=== PATIENT | male | born 1990 | race Caucasian/White ===

== ENCOUNTER 2016-09-15 13:41 | Emergency (ER) | payer BC, MEDICAID, OTHER ==
[2016-09-15 13:46] VITALS: BP 117/74
[2016-09-15] MEDS ORDERED: oxyCODONE/Acetamin 5/325 MG* TAB PO ONE ×2 (14:05)
[2016-09-15] MEDS ORDERED: ceFAZolin 1 GM in Dextrose (*) 1 GM/50 ML BAG IVPB ONE (15:04)
[2016-09-15] MEDS ORDERED: Tetan/Diph/Pertus SYR(Tdap)* 0.5 ML SYR(BOOSTRIX) use SYR IM ONE (15:04)
--- NOTE | 2016-09-15 15:09 | RAD ---
Indication: Right thumb injury. 2 views of the right thumb demonstrates a fracture through the distal tuft of the distal phalanx of the thumb consistent with partial amputation. IMPRESSION: Fracture through the distal tuft likely due to partial amputation of the right distal thumb.
--- NOTE | 2016-09-15 16:22 | ED ---
Laceration/Wound HPI - HPI Summary HPI Summary: 26m presents with right thumb laceration today. He was using a table saw when the board he was holding got sucked into the saw. He has full ROM of his finger. He states that he does not feel any numbness or tingling, he only feels pain. His last tetanus was 6 years ago. He is left handed. - History of Current Complaint Stated Complaint: RT HAND THUMB LAC Time Seen by Provider: 09/15/16 13:51 Pain Intensity: 6 - Allergy/Home Medications Allergies/Adverse Reactions: Allergies Allergy/AdvReac Type Severity Reaction Status Date / Time No Known Allergies Allergy Verified 09/15/16 16:33 PMH/Surg Hx/FS Hx/Imm Hx Endocrine/Hematology History: Denies: Hx Anticoagulant Therapy Cardiovascular History: Denies: Hx Hypertension Infectious Disease History: No Infectious Disease History: Denies: Traveled Outside the [place] in Last 30 Days - Family History Known Family History: Negative: Cardiac Disease - Social History Alcohol Use: Occasionally Substance Use Type: Reports: None Smoking Status (MU): Unknown if Ever Smoked Review of Systems Negative: Fever Negative: Chest Pain Negative: Shortness Of Breath Positive: Other - right thumb laceration All Other Systems Reviewed And Are Negative: Yes Physical Exam Triage Information Reviewed: Yes Vital Signs On Initial Exam: Initial Vitals Temp Pulse Resp BP Pulse Ox 97.3 F 72 20 117/74 100 09/15/16 13:43 09/15/16 13:43 09/15/16 13:43 09/15/16 13:43 09/15/16 13:43 Vital Signs Reviewed: Yes Appearance: Positive: Well-Appearing Skin: Positive: Warm, Dry, Other - large laceration of right thumb with skin avulsed 6 cm long and irregular by 2 cm wide Head/Face: Positive: Normal Head/Face Inspection Eyes: Positive: Normal, Conjunctiva Clear Respiratory/Lung Sounds: Positive: Clear to Auscultation, Breath Sounds Present Cardiovascular: Positive: Normal, RRR Musculoskeletal: Positive: Other - nail attached with good capillary refill, sensation grossly intact, full ROM of thumb Procedures - Laceration/Wound Repair 1 Location: Other - right thumb Description: Linear Anesthesia: Digital, 1.0% Length, Depth and Shape: 6cm by 2cm irregular with multiple intersecting laceration, skin avulsion Betadine Prep?: Yes Irrigated w/ Saline (ccs): 1,000 Laceration/Wound Explored: clean Closure: Single Layer Debridement: moderate Suture Type: Prolene - 4-0 Number of Sutures: 10 Layer Closure?: No Sterile Dressing Applied?: No Diagnostics - Vital Signs Vital Signs Temp Pulse Resp BP Pulse Ox 09/15/16 13:43 97.3 F 72 20 117/74 100 - Laboratory Lab Statement: Any lab studies that have been ordered have been reviewed, and results considered in the medical decision making process. Laceration Repair Course/Dx - Course Course Of Treatment: 26M presents with right thumb laceration from table saw. is left handed, full ROM of finger, has tuff fracture so treated with ancef and tetanus shot, tried to reapproximate edges as well as could with moderate debridement but area had large avulsion and was unable to suture area, had dr tuttle look at wound and areas are can not be sutured, placed surgicel on area and applied pressure dressing and splint and told to follow up with ortho for evaulation of tendons of hands, placed on antibiotics, patient understands and agrees with plan - Differential Dx Differental Diagnoses: Avulsion, Fracture, Laceration, Tendon Laceration - Clinical Impression Provider Diagnoses: Laceration of right thumb, Open fracture of tuft of distal phalanx of finger Discharge - Discharge Plan Condition: Good Disposition: HOME Prescriptions: Cephalexin CAP* [Keflex CAP*] 500 mg PO BID #20 cap Ibuprofen TAB* [Motrin TAB* 800 MG] 800 mg PO Q6H #30 tab Patient Education Materials: Care For Your Stitches (ED) Referrals: Josh Kumar MD [Medical Doctor] - No Primary Care Phys,NOPCP [Primary Care Provider] - Additional Instructions: Take antibiotic twice a day for 10 days starting tomorrow Take ibuprofen every 6 hours for pain as needed Change dressing tomorrow leaving absorbable hemostat on wound and rewrap, Keep brace on area until follow up with ortho Follow up with ortho Return to ED if 10-14 days to have sutures removed Return to ED if develop signs of infection such as fever, spreading redness, or pus.
== END 2016-09-15 17:04 | disposition home or self-care (01) ==
LOC: ED 13:41
DX: S62.501B Fracture of unspecified phalanx of right thumb, initial encounter for open fracture (principal); S61.011A Laceration without foreign body of right thumb without damage to nail, initial encounter; W45.8XXA Other foreign body or object entering through skin, initial encounter; Y93.9 Activity, unspecified; Y92.9 Unspecified place or not applicable
CPT/HCPCS: 90471; 90715; 99282; A9270-GY; J0690

== ENCOUNTER → 2017-04-11 10:40 | Emergency (ER) | payer MEDICAID, OTHER ==
[~2017-04-11 10:40] MED LIST: Ibuprofen TAB* 600 MG PO ONE
[2017-04-11 10:50] VITALS: BP 125/83
[2017-04-11 12:02] LABS: Hematocrit 46 % (42-52); Hemoglobin 15.9 g/dl (14.0-18.0); Mean Corpuscular HGB Conc 35 g/dl (31-36); Mean Corpuscular Hemoglobin 31 pg (27-31); Mean Corpuscular Volume 89 fL (80-94); Mean Platelet Volume 11 um3 (7.4-10.4); Red Blood Count 5.15 10^6/ul (4.0-5.4); Red Cell Distribution Width 13 % (10.5-15); White Blood Count 4.6 10^3/ul (3.5-10.8)
[2017-04-11 12:04] LABS: Comments Flag Yes
[2017-04-11 12:05] LABS: Add Diff/Slide Review? Slide Review Added
[2017-04-11 12:17] LABS: Albumin 4.4 g/dL (3.2-5.2); Calcium 9.3 mg/dL (8.6-10.3); EGFR African American 150.2 (>60); EGFR Non-African American 116.8 (>60); Globulin 2.4 g/dL (2-4); Total Bilirubin 0.9 mg/dL (0.2-1.0); Total Protein 6.8 g/dL (6.4-8.9)
--- NOTE | 2017-04-11 12:34 | ED ---
Lower Extremity - HPI Summary HPI Summary: 27 male presents to ED with complaints of right knee pain, and concern for infection. States it began 4-5 days ago and he was seen at for the same complaint. Started on augmentin, has taken 3.5 days doses and states has not had improvement. States he popped a "pimple" with a needle on skin of right knee cap 5 days ago and since has been having "burning, sharp, shooting" pain and swelling. States the "pimple" looks much better and he has just been covering with band-aid. No other complaints other than having some shooting pain in right lower leg intermittently. Admits to some swelling and that it feels warm. Has not taken any other medications. Admits to kneeling on his knees a lot at work without wearing his knee pads. No other PMHx. Denies fever and current erythema. Denies numbness/tingling. Able to bear weight and walk. - History of Current Complaint Chief Complaint: EDExtremityLower Stated Complaint: RT KNEE POSS INFECTION/BURNING PAIN Time Seen by Provider: 04/11/17 10:55 Hx Obtained From: Patient Mechanism Of Injury: Unknown, Other - popped small abscess over right knee cap Onset of Pain: Days Onset/Duration: Still Present Severity Initially: Mild Severity Currently: Moderate Pain Intensity: 5 Pain Scale Used: 0-10 Numeric Timing: Intermittent Location: Is Discrete @ - right knee Character Of Pain: Sharp, Aching, Burning Associated Signs And Symptoms: Positive: Swelling, Redness - "resolved", Knee Pain Aggravating Factor(s): Standing, Ambulation, Weight Bearing Alleviating Factor(s): Rest Able to Bear Weight: Yes - no issue with walking - Allergies/Home Medications Allergies/Adverse Reactions: Allergies Allergy/AdvReac Type Severity Reaction Status Date / Time No Known Allergies Allergy Verified 04/11/17 10:50 PMH/Surg Hx/FS Hx/Imm Hx Endocrine/Hematology History: Denies: Hx Anticoagulant Therapy Cardiovascular History: Denies: Hx Hypertension Musculoskeletal History: Denies: Hx Arthritis - Surgical History Surgery Procedure, Year, and Place: no - Immunization History Immunizations Up to Date: Yes Infectious Disease History: No Infectious Disease History: Denies: Traveled Outside the [place] in Last 30 Days - Family History Known Family History: Negative: Cardiac Disease - Social History Alcohol Use: Occasionally Substance Use Type: Reports: None Smoking Status (MU): Unknown if Ever Smoked Review of Systems Constitutional: Negative Cardiovascular: Negative Respiratory: Negative Gastrointestinal: Negative Positive: Arthralgia, Myalgia - right knee, Edema - right knee Positive: Rash - right knee- resolved Neurological: Negative All Other Systems Reviewed And Are Negative: Yes Physical Exam Triage Information Reviewed: Yes Vital Signs On Initial Exam: Initial Vitals Temp Pulse Resp BP Pulse Ox 97.8 F 85 15 125/83 98 04/11/17 10:47 04/11/17 10:47 04/11/17 10:47 04/11/17 10:47 04/11/17 10:47 Vital Signs Reviewed: Yes Appearance: Positive: Well-Appearing, No Pain Distress, Well-Nourished Skin: Positive: Warm, Skin Color Reflects Adequate Perfusion, Dry, Cold, Erythema @ - small pea-sized erythematous scab over right knee appears to be healing, no drainage, edema or concern for infection. non raised. no surrounding cellulitis. Negative: Soft, Pale, Weeping Skin/Lesions Head/Face: Positive: Normal Head/Face Inspection Eyes: Positive: Conjunctiva Clear ENT: Positive: Hearing grossly normal Neck: Positive: Supple, Nontender, No Lymphadenopathy Respiratory/Lung Sounds: Positive: Clear to Auscultation, Breath Sounds Present. Negative: Rales, Rhonchi, Wheezes Cardiovascular: Positive: Normal, RRR, Pulses are Symmetrical in both Upper and Lower Extremities - 2+ pedal. Negative: Murmur, Rub Musculoskeletal: Positive: Normal, Strength/ROM Intact, Pain @ - with some movement of anterior right knee however, able and only at times. CMS intact. palpation of anterior/lateral right knee midly tender on palpation, Edema Right - very minimal edema noted over anterior right knee when compared to left, warm to touch b/l knees, Other - no sign of erythema, or cellulitis/infection. Negative: Limited @ Neurological: Positive: Normal, Sensory/Motor Intact - sensation intact, Alert, Oriented to Person Place, Time, CN Intact II-III, Reflexes Intact, NV Bundle Intact Distally, Normal Gait Psychiatric: Positive: Affect/Mood Appropriate - [place] Coma Scale Coma Scale Total: 15 Diagnostics - Vital Signs Vital Signs Temp Pulse Resp BP Pulse Ox 04/11/17 10:47 97.8 F 85 15 125/83 98 - Laboratory Lab Results: Lab Results 04/11/17 04/11/17 04/11/17 Range/Units 11:51 11:51 11:51 WBC 4.6 (3.5-10.8) 10^3/ul RBC 5.15 (4.0-5.4) 10^6/ul Hgb 15.9 (14.0-18.0) g/dl Hct 46 (42-52) % MCV 89 (80-94) fL MCH 31 (27-31) pg MCHC 35 (31-36) g/dl RDW 13 (10.5-15) % Plt Count 172 (150-450) 10^3/ul MPV 11 H (7.4-10.4) um3 Neut % (Auto) 60.5 (38-83) % Lymph % (Auto) 23.4 L (25-47) % Morgan % (Auto) 10.1 H (1-9) % Eos % (Auto) 4.6 (0-6) % Baso % (Auto) 1.4 (0-2) % Absolute Neuts (auto) 2.8 (1.5-7.7) 10^3/ul Absolute Lymphs (auto) 1.1 (1.0-4.8) 10^3/ul Absolute Monos (auto) 0.5 (0-0.8) 10^3/ul Absolute Eos (auto) 0.2 (0-0.6) 10^3/ul Absolute Basos (auto) 0.1 (0-0.2) 10^3/ul Absolute Nucleated RBC 0 10^3/ul Nucleated RBC % 0 Sodium 135 (133-145) mmol/L Potassium 4.0 (3.5-5.0) mmol/L Chloride 101 (101-111) mmol/L Carbon Dioxide 30 (22-32) mmol/L Anion Gap 4 (2-11) mmol/L BUN 15 (6-24) mg/dL Creatinine 0.79 (0.67-1.17) mg/dL Est GFR ( Amer) 150.2 (>60) Est GFR (Non-Af Amer) 116.8 (>60) BUN/Creatinine Ratio 19.0 (8-20) Glucose 97 (70-100) mg/dL Lactic Acid 0.7 (0.5-2.0) mmol/L Calcium 9.3 (8.6-10.3) mg/dL Total Bilirubin 0.90 (0.2-1.0) mg/dL AST 16 (13-39) U/L ALT 20 (7-52) U/L Alkaline Phosphatase 50 (34-104) U/L Total Protein 6.8 (6.4-8.9) g/dL Albumin 4.4 (3.2-5.2) g/dL Globulin 2.4 (2-4) g/dL Albumin/Globulin Ratio 1.8 (1-3) Result Diagrams: 04/11/17 11:51 04/11/17 11:51 Lab Statement: Any lab studies that have been ordered have been reviewed, and results considered in the medical decision making process. - Radiology right knee Xray Interpretation: No Acute Changes - Unremarkable right knee. Radiology Interpretation Completed By: Radiologist Lower Extremity Course/Dx - Course Course Of Treatment: labs obtained and negative. ESR and CRP. no concern for infection, gout or septic arthritis at this time. x-ray obtained and negative. normal vitals, afebrile. Possibly having small effusion and pain from overuse and trauma at work. Patient states he is on his knees and does not wear knee protection. No other emergent etiology at this time. Continue antibiotics and additionally add ibuprofen RICE and follow up ortho. Given cristel bandage for compression and support. Aware of worsening signs and symptoms. Recommend using knee protection while at work. Follow up PCP. Return if worsens or new symptoms develop/does not improve. - Diagnoses Differential Diagnosis/HQI/PQRI: Positive: Arthritis, Cellulitis, Dislocation, Fracture (Closed), Gout, Infection, Septic Arthritis, Sprain, Strain, Other - joint effusion Provider Diagnoses: Pain and swelling of right knee Discharge - Discharge Plan Condition: Stable Disposition: HOME Patient Education Materials: Swollen Knee Joint (ED), Knee Pain (ED) Referrals: No Primary Care Phys,NOPCP [Primary Care Provider] - Kenrick Gregory MD [Medical Doctor] - Additional Instructions: Rest, ice, elevated and keep cristel bandage applied for compression. Recommend wearing knee pads while at work. Ibuprofen/Aleve for inflammation. Continue antibiotics until entire dose is finished, as directed. If symptoms worsen or do not improve please seek medical attention as discussed (fever, redness or increased swelling/pain). Call and make an appointment with ortho if symptoms do not improve or worsen.
--- NOTE | 2017-04-11 12:51 | RAD ---
Indication: Right knee pain. 4 views of the right knee demonstrates no fracture. No joint effusion is noted. No other bone or joint abnormality identified. IMPRESSION: Unremarkable right knee.
[2017-04-11 16:17] LABS: Uric Acid 5.6 mg/dL (4.4-7.6)
== END | disposition home or self-care (01) ==
LOC: ED 10:40
DX: M25.561 Pain in right knee (principal); M25.461 Effusion, right knee
CPT/HCPCS: 36415; 80053; 83605; 84550; 85025; 85652; 86140; 99282; A9270-GY

== ENCOUNTER 2019-01-12 19:09 | Emergency (ER) | payer OTHER ==
[2019-01-12] MEDS ORDERED: Naproxen TAB* 250 MG PO ONE (21:35)
--- NOTE | 2019-01-12 22:28 | ED ---
Lower Extremity - HPI Summary HPI Summary: 28-year-old male presents with right lower leg pain. Patient states that 5 days ago he was building a swing out of logs and the log that he was using for a crossbar which was a 12' x 10" [place] log slipped from its bracket and ended up striking him in the medial aspect of his proximal right lower leg immediately below his knee. He states that over the past few days he is had some increased pain primarily in the back of his calf. He has taken ibuprofen with some relief in the pain. He has been able to walk and bear weight on the leg. Denies fever, chills, weakness, numbness, or tingling. - History of Current Complaint Chief Complaint: EDExtremityUpper Stated Complaint: RT LEG INJURY PER PT Time Seen by Provider: 01/12/19 21:36 Hx Obtained From: Patient Pain Intensity: 5 - Allergies/Home Medications Allergies/Adverse Reactions: Allergies Allergy/AdvReac Type Severity Reaction Status Date / Time No Known Allergies Allergy Verified 01/12/19 19:16 Home Medications: Home Medications NK [No Home Medications Reported] 01/12/19 [History Confirmed 01/12/19] PMH/Surg Hx/FS Hx/Imm Hx Previously Healthy: Yes - Denies significant PMH Endocrine/Hematology History: Denies: Hx Anticoagulant Therapy Cardiovascular History: Denies: Hx Hypertension Musculoskeletal History: Denies: Hx Arthritis - Surgical History Surgical History: Yes Surgery Procedure, Year, and Place: ORIF right femur - Immunization History Immunizations Up to Date: Yes Infectious Disease History: No Infectious Disease History: Denies: Traveled Outside the [place] in Last 30 Days - Family History Known Family History: Positive: Non-Contributory - Social History Occupation: Employed Full-time Lives: Alone Alcohol Use: Occasionally Substance Use Type: Reports: None Smoking Status (MU): Former Smoker Review of Systems Negative: Fever, Chills Cardiovascular: Negative Respiratory: Negative Gastrointestinal: Negative Genitourinary: Negative Positive: Other - See HPI Positive: Bruising, Other - Abrasion Neurological: Negative All Other Systems Reviewed And Are Negative: Yes Physical Exam - Summary Physical Exam Summary: GENERAL APPEARANCE: Well developed, well nourished, alert and cooperative, and appears to be in no acute distress. CARDIAC: Normal S1 and S2. No S3, S4 or murmurs. Rhythm is regular. There is no peripheral edema, cyanosis or pallor. LUNGS: Clear to auscultation without rales, rhonchi, wheezing or diminished breath sounds. ABDOMEN: Positive bowel sounds. Soft, nondistended, nontender. No guarding or rebound. No masses or hepatosplenomegally. MUSKULOSKELETAL: ROM intact to all extremities. No joint erythema or tenderness. Normal muscular development. Normal gait. EXTREMITIES: Large abrasion approximately 4 cm in diameter with surrounding ecchymosis to the proximal medial right lower leg. Calf is supple but mildly tender with palpation. The leg is warm and well perfused. Capillary refill is less than 2 seconds. Pedal pulses intact. Sensation intact. SKIN: Skin normal color, texture and turgor with no lesions or eruptions. Triage Information Reviewed: Yes Vital Signs On Initial Exam: Initial Vitals Temp Pulse Resp BP Pulse Ox 98.3 F 96 16 124/65 98 01/12/19 19:14 01/12/19 19:14 01/12/19 19:14 01/12/19 19:14 01/12/19 19:14 Vital Signs Reviewed: Yes Diagnostics - Vital Signs Vital Signs Temp Pulse Resp BP Pulse Ox 01/12/19 21:17 98.9 F 71 16 118/54 99 01/12/19 19:14 98.3 F 96 16 124/65 98 - Laboratory Lab Statement: Any lab studies that have been ordered have been reviewed, and results considered in the medical decision making process. - Radiology No standard instances Radiology Interpretation Completed By: ED Physician - No acute fracture Lower Extremity Course/Dx - Course Course Of Treatment: 28-year-old male presents with right lower leg pain. Patient states that 5 days ago he was building a swing out of logs and the log that he was using for a crossbar which was a 12' x 10" [place] log slipped from its bracket and ended up striking him in the medial aspect of his proximal right lower leg immediately below his knee. He states that over the past few days he is had some increased pain primarily in the back of his calf. He has taken ibuprofen with some relief in the pain. He has been able to walk and bear weight on the leg. Denies fever, chills, weakness, numbness, or tingling. Afebrile. Vital signs stable. Patient had a large abrasion approximately 4 cm in diameter with surrounding ecchymosis to the proximal medial right lower leg. Calf was supple but mildly tender with palpation. The leg was warm and well perfused. Capillary refill was less than 2 seconds. Pedal pulses intact. Sensation intact. A tib-fib x-ray showed no acute fracture. Discussed with the patient that I suspect that he has a bad contusion of the calf muscle however I did also discuss with him that I could not fully rule out the possibility of compartment syndrome although with the supple calf and good perfusion I do not feel that this eased urgently evaluated at this time. He is to follow-up with orthopedic surgery in one to 2 days. Recommending over-the- counter analgesics and RICE. Anticipatory guidance and warning symptoms were reviewed with the patient. I stressed that he should have a very low threshold to return to the emergency room if he has continued worsening of symptoms. He should verbalizes understanding and agrees with plan of care. - Diagnoses Differential Diagnosis/HQI/PQRI: Positive: Compartment Syndrome, Contusion, Fracture (Closed), Infection Provider Diagnoses: Contusion of right lower leg Discharge - Sign-Out/Discharge Documenting (check all that apply): Patient Departure Patient Received Moderate/Deep Sedation with Procedure: No - Discharge Plan Condition: Stable Disposition: HOME Patient Education Materials: Contusion in Adults (ED) Referrals: No Primary Care Phys,NOPCP [Primary Care Provider] - Josh Kumar MD [Medical Doctor] - Additional Instructions: The x-ray performed in the clinic today showed no evidence of a fracture. You have a large contusion to the leg which could be the cause of your discomfort however I cannot rule out that you may have a condition called compartment syndrome. Rest the leg as much as possible. Apply ice to the affected area for 15-20 minutes at least 4 times a day to help with the pain and swelling. Elevate the leg to help reduce swelling. Take acetaminophen (Tylenol) or ibuprofen (Advil, Motrin) according to directions as needed for pain. Follow up with orthopedic surgery in 1-2 days if symptoms do not improve. Seek immediate medical attention if you have severe pain not managed with pain medication, you are unable to walk or bear any weight, develop numbness or tingling in the foot or toes, or have any worsening of symptoms. - Billing Disposition and Condition Condition: STABLE Disposition: Home
[2019-01-12 22:43] VITALS: BP 0/0
== END 2019-01-12 22:42 | disposition home or self-care (01) ==
LOC: ED 19:09
DX: S80.11XA Contusion of right lower leg, initial encounter (principal); W22.8XXA Striking against or struck by other objects, initial encounter; Z87.891 Personal history of nicotine dependence
CPT/HCPCS: 99282; A9270-GY